=== PATIENT | female | born 1965 | race Caucasian/White ===

== ENCOUNTER 2018-06-16 10:27 | Emergency (ER) | payer OTHER ==
[2018-06-16 10:39] VITALS: RESP 18; TEMP 98.2
[2018-06-16] MEDS ORDERED: SODIUM CHLORIDE 0.9% 1,000 ML IV STA (10:55)
[2018-06-16] MEDS ORDERED: SODIUM CHLORIDE 0.9% 500 ML IV STA (10:55)
[2018-06-16 11:24] LABS: Appearance,Urine Clear (Clear); Bilirubin,Urine Negative (Negative); Blood,Urine Negative (Negative); Color,Urine Light Yellow; Glucose,Urine (UA) Negative (Negative); Ketones,Urine Negative (Negative); Leukocyte Esterase,Urine Negative (Negative); Nitrite,Urine Negative (Negative); Protein,Urine Negative (Negative); Specific Gravity,Urine 1.007 (1.001-1.035); Urobilinogen,Urine <2.0 mg/dL (<2.0)
--- NOTE | 2018-06-16 11:46 | ED ---
General Adult HPI - General Chief complaint: Abdominal Pain Stated complaint: Abd Pain Time Seen by Provider: 06/16/18 10:45 Source: patient, RN notes reviewed, old records reviewed Mode of arrival: ambulatory Limitations: no limitations - History of Present Illness Initial comments: This is a 53-year-old female to the ER for evaluation of abdominal pain. Patient's complaining of right upper quadrant abdominal pain. Patient has minor surgical history of OB surgery and hernia. She states this pain is been kind of intermittent for the last 3 days no significant modifying factors, not worse when she eats, she has been nauseous with no vomiting no diarrhea or abnormal bowel movements. She denies recent travel history or fevers. Patient' s pain was worse this morning when she woke up at this time it seemed to settle down a little bit. Patient does have positive OB history of 2 living vaginal deliveries. - Related Data Allergies Allergy/AdvReac Type Severity Reaction Status Date / Time No Known Allergies Allergy Verified 06/16/18 10:39 Review of Systems ROS Statement: Those systems with pertinent positive or pertinent negative responses have been documented in the HPI. ROS Other: All systems not noted in ROS Statement are negative. Past Medical History Past Medical History: Hyperlipidemia, Thyroid Disorder History of Any Multi-Drug Resistant Organisms: None Reported Past Surgical History: Tubal Ligation Additional Past Surgical History / Comment(s): umbilical hernia repair, lap for PCOS, right foot sx, myomyectomy Past Psychological History: No Psychological Hx Reported Smoking Status: Never smoker Past Alcohol Use History: Occasional Past Drug Use History: None Reported General Exam Limitations: no limitations General appearance: alert, in no apparent distress Head exam: Present: atraumatic, normocephalic, normal inspection Eye exam: Present: normal appearance, PERRL, EOMI. Absent: scleral icterus, conjunctival injection, periorbital swelling ENT exam: Present: normal exam, mucous membranes moist Neck exam: Present: normal inspection. Absent: tenderness, meningismus, lymphadenopathy Respiratory exam: Present: normal lung sounds bilaterally. Absent: respiratory distress, wheezes, rales, rhonchi, stridor Cardiovascular Exam: Present: regular rate, normal rhythm, normal heart sounds. Absent: systolic murmur, diastolic murmur, rubs, gallop, clicks GI/Abdominal exam: Present: soft, normal bowel sounds. Absent: distended, tenderness, guarding, rebound, rigid Extremities exam: Present: normal inspection, full ROM, normal capillary refill. Absent: tenderness, pedal edema, joint swelling, calf tenderness Back exam: Present: normal inspection Neurological exam: Present: alert, oriented X3, CN II-XII intact Psychiatric exam: Present: normal affect, normal mood Skin exam: Present: warm, dry, intact, normal color. Absent: rash Course Vital Signs 06/16/18 10:35 Temperature 98.2 F Pulse Rate 75 Respiratory 18 Rate Blood Pressure 143/98 O2 Sat by Pulse 99 Oximetry Medical Decision Making - Medical Decision Making 53 female the ER with upper quadrant pain right upper quadrant. No specific cause found on ultrasound, patient does have hepatic hemangioma, urged follow- up with family doctor monitor symptoms and findings. Patient can be discharged home - Lab Data Result diagrams: 06/16/18 11:35 06/16/18 11:35 Lab Results 06/16/18 06/16/18 06/16/18 Range/Units 11:20 11:35 11:35 WBC (3.8-10.6) k/uL RBC (3.80-5.40) m/uL Hgb (11.4-16.0) gm/dL Hct (34.0-46.0) % MCV (80.0-100.0) fL MCH (25.0-35.0) pg MCHC (31.0-37.0) g/dL RDW (11.5-15.5) % Plt Count (150-450) k/uL Neutrophils % % Lymphocytes % % Monocytes % % Eosinophils % % Basophils % % Neutrophils # (1.3-7.7) k/uL Lymphocytes # (1.0-4.8) k/uL Monocytes # (0-1.0) k/uL Eosinophils # (0-0.7) k/uL Basophils # (0-0.2) k/uL PT (9.0-12.0) sec INR (<1.2) APTT (22.0-30.0) sec Sodium 140 (137-145) mmol/L Potassium 4.3 (3.5-5.1) mmol/L Chloride 108 H (98-107) mmol/L Carbon Dioxide 26 (22-30) mmol/L Anion Gap 6 mmol/L BUN 16 (7-17) mg/dL Creatinine 0.70 (0.52-1.04) mg/dL Est GFR (CKD-EPI)AfAm >90 (>60 ml/min/1.73 sqM) Est GFR (CKD-EPI)NonAf >90 (>60 ml/min/1.73 sqM) Glucose 93 (74-99) mg/dL Calcium 9.6 (8.4-10.2) mg/dL Total Bilirubin 0.5 (0.2-1.3) mg/dL AST 24 (14-36) U/L ALT 31 (9-52) U/L Alkaline Phosphatase 110 (38-126) U/L Total Creatine Kinase 62 (30-135) U/L Total Protein 6.5 (6.3-8.2) g/dL Albumin 4.0 (3.5-5.0) g/dL Amylase 60 (30-110) U/L Lipase 64 (23-300) U/L Urine Color Light Yellow Urine Appearance Clear (Clear) Urine pH 7.0 (5.0-8.0) Ur Specific [place] 1.007 (1.001-1.035) Urine Protein Negative (Negative) Urine Glucose (UA) Negative (Negative) Urine Ketones Negative (Negative) Urine Blood Negative (Negative) Urine Nitrite Negative (Negative) Urine Bilirubin Negative (Negative) Urine Urobilinogen <2.0 (<2.0) mg/dL Ur Leukocyte Esterase Negative (Negative) 06/16/18 06/16/18 Range/Units 11:35 11:35 WBC 4.7 (3.8-10.6) k/uL RBC 5.17 (3.80-5.40) m/uL Hgb 14.9 (11.4-16.0) gm/dL Hct 44.1 (34.0-46.0) % MCV 85.4 (80.0-100.0) fL MCH 28.9 (25.0-35.0) pg MCHC 33.9 (31.0-37.0) g/dL RDW 13.5 (11.5-15.5) % Plt Count 160 (150-450) k/uL Neutrophils % 70 % Lymphocytes % 21 % Monocytes % 5 % Eosinophils % 1 % Basophils % 1 % Neutrophils # 3.3 (1.3-7.7) k/uL Lymphocytes # 1.0 (1.0-4.8) k/uL Monocytes # 0.3 (0-1.0) k/uL Eosinophils # 0.1 (0-0.7) k/uL Basophils # 0.0 (0-0.2) k/uL PT 9.8 (9.0-12.0) sec INR 1.0 (<1.2) APTT 23.9 (22.0-30.0) sec Sodium (137-145) mmol/L Potassium (3.5-5.1) mmol/L Chloride (98-107) mmol/L Carbon Dioxide (22-30) mmol/L Anion Gap mmol/L BUN (7-17) mg/dL Creatinine (0.52-1.04) mg/dL Est GFR (CKD-EPI)AfAm (>60 ml/min/1.73 sqM) Est GFR (CKD-EPI)NonAf (>60 ml/min/1.73 sqM) Glucose (74-99) mg/dL Calcium (8.4-10.2) mg/dL Total Bilirubin (0.2-1.3) mg/dL AST (14-36) U/L ALT (9-52) U/L Alkaline Phosphatase (38-126) U/L Total Creatine Kinase (30-135) U/L Total Protein (6.3-8.2) g/dL Albumin (3.5-5.0) g/dL Amylase (30-110) U/L Lipase (23-300) U/L Urine Color Urine Appearance (Clear) Urine pH (5.0-8.0) Ur Specific [place] (1.001-1.035) Urine Protein (Negative) Urine Glucose (UA) (Negative) Urine Ketones (Negative) Urine Blood (Negative) Urine Nitrite (Negative) Urine Bilirubin (Negative) Urine Urobilinogen (<2.0) mg/dL Ur Leukocyte Esterase (Negative) - Radiology Data Radiology results: report reviewed (Ultrasound right lower upper quadrant shows positive hepatic hemangioma, gallbladder clean of disease), image reviewed Disposition Clinical Impression: Abdominal pain, Hepatic hemangioma Disposition: HOME SELF-CARE Condition: Good Instructions: Abdominal Pain (ED) Is patient prescribed a controlled substance at d/c from ED?: No Referrals: Warner Taylor MD [Primary Care Provider] - 1-2 days
[2018-06-16 12:02] LABS: Basophils % (A) 1 %; Eosinophils # (A) 0.1 k/uL (0-0.7); Eosinophils % (A) 1 %; HCT 44.1 % (34.0-46.0); HGB 14.9 gm/dL (11.4-16.0); Lymphocytes % (A) 21 %; MCH 28.9 pg (25.0-35.0); MCHC 33.9 g/dL (31.0-37.0); MCV 85.4 fL (80.0-100.0); Mean Platelet Volume 7.6; Monocytes # (A) 0.3 k/uL (0-1.0); Monocytes % (A) 5 %; Neutrophils # (A) 3.3 k/uL (1.3-7.7); Neutrophils % (A) 70 %; Platelet Count 160 k/uL (150-450); RBC 5.17 m/uL (3.80-5.40); RDW 13.5 % (11.5-15.5); WBC 4.7 k/uL (3.8-10.6)
[2018-06-16 12:11] LABS: ALT 31 U/L (9-52); AST 24 U/L (14-36); Alkaline Phosphatase 110 U/L (38-126); Amylase 60 U/L (30-110); Anion Gap 6 mmol/L; Blood Urea Nitrogen 16 mg/dL (7-17); Calcium 9.6 mg/dL (8.4-10.2); Carbon Dioxide 26 mmol/L (22-30); Chloride 108 mmol/L (98-107); Glucose 93 mg/dL (74-99); Lipase 64 U/L (23-300); Potassium 4.3 mmol/L (3.5-5.1); Sodium 140 mmol/L (137-145); Total Bilirubin 0.5 mg/dL (0.2-1.3); Total Protein 6.5 g/dL (6.3-8.2)
[2018-06-16 12:14] LABS: Partial Thromboplastin Time 23.9 sec (22.0-30.0); Prothrombin Time 9.8 sec (9.0-12.0)
--- NOTE | 2018-06-16 12:15 | US ---
EXAMINATION TYPE: US gallbladder DATE OF EXAM: 06/16/2018 COMPARISON: NONE CLINICAL HISTORY: RUQ Pain. EXAM MEASUREMENTS: Liver Length: 14.2 cm Gallbladder Wall: 0.2 cm CBD: 0.5 cm Right Kidney: 10.9 x 4.5 x 4.8 cm Pancreas: Tail obscured by overlying bowel gas, visualized portions wnl Liver: Hyperechoic area visualized right lobe measuring 1.1 x 1.0 x0.9 cm, possible hemangioma Gallbladder: wnl Evidence for sonographic Sharp's sign: No CBD: wnl Right Kidney: No hydronephrosis or masses seen Pancreas is unremarkable. The liver is normal in size. There is a probable 1.1 cm hemangioma in the right lobe of the liver. Th ere is no biliary dilatation. The gallbladder is unremarkable. The gallbladder wall measures 2.2 mm. The distal common hepatic duct measures 5 mm. The right kidney is unremarkable. IMPRESSION: POSSIBLE SMALL HEMANGIOMA WITHIN THE RIGHT LOBE OF THE LIVER.
[2018-06-16 12:24] LABS: Creatine Kinase 62 U/L (30-135)
[2018-06-16 12:37] LABS: Creatine Kinase MB 0.6 ng/mL (0.0-2.4); Troponin I <0.012 ng/mL (0.000-0.034)
[2018-06-16 13:00] VITALS: BP 151/91; PULSE 73
== END 2018-06-16 13:00 | disposition home or self-care (01) ==
LOC: EC 10:27
DX: D18.03 Hemangioma of intra-abdominal structures (principal); Z98.51 Tubal ligation status; Z98.890 Other specified postprocedural states
CPT/HCPCS: 36415; 76705; 80053; 81003; 82150; 82550; 82553; 83690; 84484; 85025; 85610; 85730; 87086; 96360; 96361; 99284

== ENCOUNTER 2023-10-08 05:13 | Observation (INO) | payer OTHER ==
[2023-10-08] MEDS ORDERED: ASPIRIN 81 MG PO STA (05:50)
--- NOTE | 2023-10-08 05:56 | ED ---
Chest Pain HPI - General Chief Complaint: Chest Pain Stated Complaint: Chest pain Time Seen by Provider: 10/08/23 05:42 Source: patient Mode of arrival: ambulatory Limitations: no limitations - History of Present Illness Initial Comments: Patient is 58-year-old woman who states that left 4 AM she woke up and noticed that she had a tight feeling on the right side of her chest. She states that she has been under a lot of stress recently with building a home. Patient states that she did not notice worsening or relieving factors. When the pain did not go away she has been felt she should evaluate be evaluated and they drove here. The pain is little decreased but still there. She has not noted any accompanying symptoms. MD Complaint: chest pain -: hour(s) Onset: during rest Pain Location: right chest Pain Radiation: none Severity: moderate Quality: tightness Consistency: constant Improves With: nothing Worsens With: nothing Treatments Prior to Arrival: none - Related Data Allergies Allergy/AdvReac Type Severity Reaction Status Date / Time No Known Allergies Allergy Verified 06/16/18 10:39 Review of Systems ROS Statement: Those systems with pertinent positive or pertinent negative responses have been documented in the HPI. ROS Other: All systems not noted in ROS Statement are negative. Constitutional: Denies: fever, chills Respiratory: Denies: cough, dyspnea Cardiovascular: Reports: as per HPI, chest pain. Denies: palpitations, orthopnea, edema, syncope Gastrointestinal: Denies: abdominal pain, nausea, vomiting, diarrhea, constipation Genitourinary: Denies: dysuria, hematuria Musculoskeletal: Denies: back pain Skin: Denies: rash Neurological: Denies: headache, weakness, numbness EKG Findings - EKG Results: EKG: interpreted by ERMD, sinus rhythm (Rate 69 bpm), normal axis, normal ST/T - Blocks, Gilbert, Hypertrophy, ST Abn: QRS axis and voltage: low voltage (<0.5 MV total QRS and <1.0 MV in each precordial lead) Past Medical History Past Medical History: Hyperlipidemia, Thyroid Disorder History of Any Multi-Drug Resistant Organisms: None Reported Past Surgical History: Tubal Ligation Additional Past Surgical History / Comment(s): umbilical hernia repair, lap for PCOS, right foot sx, myomyectomy Past Psychological History: No Psychological Hx Reported Past Alcohol Use History: Occasional Past Drug Use History: None Reported General Exam Limitations: no limitations General appearance: alert, in no apparent distress Head exam: Present: atraumatic, normocephalic Eye exam: Present: normal appearance. Absent: scleral icterus, conjunctival injection ENT exam: Present: normal oropharynx Neck exam: Present: normal inspection Respiratory exam: Present: normal lung sounds bilaterally. Absent: respiratory distress, wheezes, rales, rhonchi, stridor Cardiovascular Exam: Present: regular rate, normal rhythm, normal heart sounds. Absent: systolic murmur, diastolic murmur, rubs, gallop GI/Abdominal exam: Present: soft. Absent: distended, tenderness, guarding, rebound, rigid, mass Extremities exam: Present: normal inspection, normal capillary refill. Absent: pedal edema, calf tenderness Back exam: Present: normal inspection. Absent: CVA tenderness (R), CVA tenderness (L) Neurological exam: Present: alert Skin exam: Present: warm, dry, intact, normal color. Absent: rash Course Vital Signs 10/08/23 10/08/23 05:16 06:11 Temperature 97.8 F Pulse Rate 79 68 Respiratory 18 18 Rate Blood Pressure 158/99 122/84 O2 Sat by Pulse 97 97 Oximetry Disposition Clinical Impression: Chest pain Disposition: ADMITTED IP TO THIS HOSP Condition: Fair Instructions (If sedation given, give patient instructions): Chest Pain (ED) Is patient prescribed a controlled substance at d/c from ED?: No Referrals: Nonstaff,Physician [Primary Care Provider] - 1-2 days
--- NOTE | 2023-10-08 06:48 | XR ---
EXAMINATION TYPE: XR chest 2V DATE OF EXAM: 10/08/2023 6:02 AM COMPARISON: None TECHNIQUE: XR chest 2V Frontal and lateral views of the chest. CLINICAL INDICATION:Female, 58 years old with history of Chest Pain; FINDINGS: Lungs/Pleura: There is no evidence of pleural effusion, focal consolidation, or pneumothorax. Pulmonary vascularity: Unremarkable. Heart/mediastinum: Cardiomediastinal silhouette is unremarkable. Musculoskeletal: No acute osseous pathology. IMPRESSION: No acute cardiopulmonary disease/process.
[2023-10-08 07:35] LABS: Basophils # (A) 0.1 k/uL (0-0.2); Basophils % (A) 1 %; Eosinophils # (A) 0.1 k/uL (0-0.7); Eosinophils % (A) 2 %; HCT 49.2 % (34.0-46.0); HGB 16.8 gm/dL (11.4-16.0); Lymphocytes # (A) 0.9 k/uL (1.0-4.8); Lymphocytes % (A) 20 %; MCH 30.1 pg (25.0-35.0); MCHC 34.1 g/dL (31.0-37.0); MCV 88.3 fL (80.0-100.0); Mean Platelet Volume 8.5; Monocytes # (A) 0.2 k/uL (0-1.0); Monocytes % (A) 5 %; Neutrophils # (A) 3.3 k/uL (1.3-7.7); Neutrophils % (A) 71 %; Platelet Count 187 k/uL (150-450); RBC 5.58 m/uL (3.80-5.40); RDW 13.1 % (11.5-15.5); WBC 4.6 k/uL (3.8-10.6)
[2023-10-08 07:53] LABS: ALT 22 U/L (4-34); AST 25 U/L (14-36); African American GFR (CKD) >90 (>60 ml/min/1.73 sqM); Albumin 4.4 g/dL (3.5-5.0); Alkaline Phosphatase 132 U/L (38-126); Amylase 67 U/L (30-110); Anion Gap 9 mmol/L; Blood Urea Nitrogen 21 mg/dL (7-17); Calcium 10.2 mg/dL (8.4-10.2); Carbon Dioxide 27 mmol/L (22-30); Chloride 105 mmol/L (98-107); Glucose 92 mg/dL (74-99); Lipase 96 U/L (23-300); Magnesium 2.1 mg/dL (1.6-2.3); Non-African American GFR(CKD) >90 (>60 ml/min/1.73 sqM); Potassium 4.4 mmol/L (3.5-5.1); Sodium 141 mmol/L (137-145); Total Bilirubin 0.5 mg/dL (0.2-1.3); Total Protein 7.3 g/dL (6.3-8.2)
[2023-10-08] MEDS ORDERED: NITROGLYCERIN SL TABS 0.4 MG TAB SUBLINGUAL PRN (07:55)
[2023-10-08 07:56] LABS: INR 0.8 (<1.2); Partial Thromboplastin Time 22.2 sec (22.0-30.0); Prothrombin Time 9.5 sec (10.0-12.5)
[2023-10-08] MEDS ORDERED: HYDROcodone/APAP 5-325MG 1 EACH TAB PO PRN (08:32)
[2023-10-08] MEDS ORDERED: MELATONIN 3 MG TABLET PO PRN (08:32)
[2023-10-08] MEDS ORDERED: ACETAMINOPHEN TAB 325 MG TAB PO PRN (08:32)
[2023-10-08] MEDS ORDERED: NALOXONE 0.4 MG/ML 1 ML VIAL IVP PRN (08:32)
[2023-10-08] MEDS: ASPIRIN 81 MG PO SCH (09:15)
[2023-10-08] MEDS: ATORVASTATIN 80 MG TAB PO SCH (09:16)
[2023-10-08] MEDS: METOPROLOL TARTRATE 12.5 MG TAB PO SCH ×2 (09:16→20:30)
--- NOTE | 2023-10-08 10:58 | P.CRDCN ---
History of Present Illness Consult date: 10/08/23 History of present illness: This pleasant 58-year-old female is examined in the ER waiting for a bed on the sixth for. Patient came in today with complaints of chest tightness on the right side. Patient has a known history of hyperlipidemia and thyroid disorder. Patient has been seen by cardiology at [facility]. Patient was woken up this morning at 4 AM with chest pain. She reports the pain has improved but is still slightly there and not completely resolved. Denies any worsening or relieving factors. She denies shortness of breath, dizziness, syncope, or edema. States she has been under a lot of stress, they have recently moved to the area and are building a home in [place]. 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 She recently underwent a stress test in June at [facility] which was normal. EKG showed sinus rhythm. Troponins negative 2. D-dimer negative. Patient is on Lopressor, will continue. Vital signs remained stable, blood pressure slightly elevated at 149/96 heart rate controlled at 72, 100% on room air. Patient's symptoms are atypical, will repeat stress echo tomorrow to rule out ischemic changes. Review of Systems REVIEW OF SYSTEMS At the time of my exam: CONSTITUTIONAL: Denies fever or chills. EYES: Negative for vision changes ENT: Negative for hearing loss CARDIOVASCULAR: Reports chest pain Denies shortness of breath, diaphoresis, orthopnea, PND or palpitations. VASCULAR: Denies edema RESPIRATORY: Denies cough. GASTROINTESTINAL: Denies abdominal pain, diarrhea, constipation, nausea or vomiting. MUSCULOSKELETAL: Denies myalgias. NEUROLOGIC: Denies numbness, tingling, headache or weakness. ENDOCRINE: Denies fatigue, weight change, polydipsia or polyurina. GENITOURINARY: Denies burning, hematuria or urgency with micturation. HEMATOLOGIC: Denies history of anemia or bleeding. DERMATOLOGY: Denies rash or skin sores PSYCH: Negative for depression or hallucinations. Past Medical History Past Medical History: Hyperlipidemia, Thyroid Disorder History of Any Multi-Drug Resistant Organisms: None Reported Past Surgical History: Tubal Ligation Additional Past Surgical History / Comment(s): umbilical hernia repair, lap for PCOS, right foot sx, myomyectomy Past Psychological History: No Psychological Hx Reported Past Alcohol Use History: Occasional Past Drug Use History: None Reported Medications and Allergies Allergies Allergy/AdvReac Type Severity Reaction Status Date / Time No Known Allergies Allergy Verified 06/16/18 10:39 Physical Exam Vitals: Vital Signs Temp Pulse Pulse Resp BP BP Pulse Ox 10/08/23 09:45 97.3 F L 72 16 149/96 100 10/08/23 09:02 68 18 136/84 98 10/08/23 06:11 68 18 122/84 97 10/08/23 05:16 97.8 F 79 18 158/99 97 Intake and Output 10/07/23 10/08/23 10/08/23 22:59 06:59 14:59 Other: Voiding Method Toilet Weight 72.575 kg General: The patient is awake and alert, in no distress, and does not appear acutely ill. Skin: Skin is warm and dry and no rashes or lesions are noted. Eye: Pupils are equal, round and reactive to light, extra-ocular movements are intact; there is normal conjunctiva bilaterally. Ears, nose, mouth and throat: There are moist mucous membranes and no oral lesions. Neck: The neck is supple, there is no tenderness or JVD. Cardiovascular: There is irregular regular rate and rhythm. No murmur, rub or gallop is appreciated. Respiratory: Lungs are clear to auscultation, respirations are non-labored, breath sounds are equal. Gastrointestinal: Soft, non-distended, non-tender abdomen without masses or organomegaly noted. There is no rebound or guarding present. Bowel sounds are u nremarkable. Back: There is no tenderness to palpation in the midline. There is no obvious deformity. Musculoskeletal: Normal ROM, no tenderness, There is no pedal edema. There is no calf tenderness or swelling. Extremities: Mild bilateral pitting edema Vascular: Femoral pulse is normal. Posterior tibial pulses are normal .Dorsalis pedis is palpable. Neurological: CN II-XII intact. There are no obvious motor or sensory deficits. Speech is normal. Psychiatric: Cooperative, appropriate mood & affect, normal judgment Results 10/08/23 05:47 10/08/23 05:47 Cardiac Enzymes 10/08/23 10/08/23 10/08/23 Range/Units 05:47 05:47 09:00 AST 25 (14-36) U/L Troponin I <0.012 <0.012 (0.000-0.034) ng/mL Coagulation 10/08/23 Range/Units 05:47 PT 9.5 L (10.0-12.5) sec APTT 22.2 (22.0-30.0) sec CBC 10/08/23 Range/Units 05:47 WBC 4.6 (3.8-10.6) k/uL RBC 5.58 H (3.80-5.40) m/uL Hgb 16.8 H (11.4-16.0) gm/dL Hct 49.2 H (34.0-46.0) % Plt Count 187 (150-450) k/uL Comprehensive Metabolic Panel 10/08/23 Range/Units 05:47 Sodium 141 (137-145) mmol/L Potassium 4.4 (3.5-5.1) mmol/L Chloride 105 (98-107) mmol/L Carbon Dioxide 27 (22-30) mmol/L BUN 21 H (7-17) mg/dL Creatinine 0.69 (0.52-1.04) mg/dL Glucose 92 (74-99) mg/dL Calcium 10.2 (8.4-10.2) mg/dL AST 25 (14-36) U/L ALT 22 (4-34) U/L Alkaline Phosphatase 132 H (38-126) U/L Total Protein 7.3 (6.3-8.2) g/dL Albumin 4.4 (3.5-5.0) g/dL Current Medications Generic Name Dose Route Start Last Admin Trade Name Freq PRN Reason Stop Dose Admin Acetaminophen 650 mg 10/08/23 08:32 Acetaminophen Tab 325 Mg Tab PO Q6HR PRN Mild Pain or Fever > 100.5 Hydrocodone Bitart/Acetaminophen 1 each 10/08/23 08:32 Hydrocodone/Apap 5-325mg 1 Each Tab PO Q4HR PRN Moderate Pain (Scale 4 to 6) Aspirin 81 mg 10/08/23 09:00 10/08/23 09:15 Aspirin 81 Mg PO Not Given DAILY THAIS Atorvastatin Calcium 80 mg 10/08/23 09:00 10/08/23 09:16 Atorvastatin 80 Mg Tab PO 80 mg DAILY THAIS Administration Melatonin 3 mg 10/08/23 08:32 Melatonin 3 Mg Tablet PO HS PRN Insomnia Metoprolol Tartrate 12.5 mg 10/08/23 09:00 10/08/23 09:16 Metoprolol Tartrate 12.5 Mg Tab PO 12.5 mg BID THAIS Administration Naloxone HCl 0.2 mg 10/08/23 08:32 Naloxone 0.4 Mg/Ml 1 Ml Vial IVP Q2M PRN Opioid Reversal Nitroglycerin 0.4 mg 10/08/23 07:55 Nitroglycerin Sl Tabs 0.4 Mg Tab SUBLINGUAL Q5M PRN Chest Pain Intake and Output 10/07/23 10/08/23 10/08/23 22:59 06:59 14:59 Other: Voiding Method Toilet Weight 72.575 kg 10/08/23 05:47 10/08/23 05:47 Assessment and Plan Assessment: Atypical chest pain Hyperlipidemia Thyroid disease Plan: Patient will undergo a stress echo tomorrow Continue with all current cardiac meds The above impression and plan of care have been discussed and directed by the signing physician. Pascale Granado, nurse practitioner, acting as scribe for signing physician.
--- NOTE | 2023-10-08 16:03 | P.HPIM ---
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 She presented to the emergency department this morning with complaints of chest pain/tightness. Patient reports awakening at 4 AM with tightness to midsternal chest radiating throughout the right side of her chest. Patient reports pain was significant awakening her from sleep and her was concerned so he brought her to the hospital. Patient denies having any associated symptoms including headache, lightheadedness, dizziness, diaphoresis, palpitations, shortness of breath, cough or congestion, nausea, vomiting, or experiencing any numbness/tingling/weakness/swelling in extremities. Upon arrival to our emergency department. Patient underwent full evaluation. Vital signs as follows blood pressure 158/99, heart rate 79, respiratory rate 18, temperature 97.8F, and SpO2 of 97% on room air. EKG completed showing normal sinus rhythm at 69 bpm with no noted T wave or ST abnormality showing no signs of acute ischemia upon personal review and interpretation. Chest x-ray compl eted lungs appear clear showing no signs of acute cardiopulmonary process. Labs completed and reviewed. CBC showing elevated hemoglobin of 16.8. Coagulation profile normal findings with normal d-dimer of 0.32. BMP was unremarkable with the exception of slightly elevated BUN at 21 otherwise no abnormalities. Liver profile showing slightly elevated alkaline phosphatase of 132. Amylase and lipa se within normal limits. Troponin was negative at less than 0.012. Patient was admitted under our services to cardiac observation unit with consultation to cardiology. Review of systems: Pertinent positives and negatives as discussed in HPI, a complete review of systems was performed and all other systems are negative. Physical exam: Vital signs reviewed and stable. General: Nontoxic, no distress and appears stated age. Derm: Skin warm and dry, normal coloration for ethnicity. Head: Atraumatic, normocephalic and symmetric. Eyes: EOMs intact, no lid lag, and anicteric sclera Mouth: no lip lesions, mucus membranes moist Cardiovascular: regular rate and rhythm with normal S1S2, no murmur, positive posterior tibial pulses bilaterally, and cap refill < 2 seconds. Lungs: Respirations even, regular, and unlabored on room air. Lungs CTA bilaterally, no rhonchi, no rales, no wheezing, and no accessory muscle usage. Abdominal: soft, nontender to palpation, no guarding, no appreciable organomegaly Ext: ROM intact. No gross muscle atrophy, no edema, no contractures Neuro: Speech clear, face symmetrical and CN II-XII grossly intact with no noted focal neuro deficits Psych: Alert and oriented to person, place, time, and situation. Appropriate and pleasant affect. Assessment and Plan of Care: Chest pain, rule out acute coronary event Hyperlipidemia Hypothyroidism -Cardiology consult, appreciate further recommendations. Discussed case with cardiac SECY stating they're taking patient for a cardiac stress test tomorrow morning. -Patient remained in continuous Telemetry monitoring -Trend troponins -Cardiac diet, NPO at midnight -Aspirin, atorvastatin, and metoprolol -Lipid profile with a.m. labs. -Echocardiogram to be completed Data and imaging reviewed: -Vital signs as follows blood pressure 158/99, heart rate 79, respiratory rate 18, temperature 97.8F, and SpO2 of 97% on room air. -EKG completed showing normal sinus rhythm at 69 bpm with no noted T wave or ST abnormality showing no signs of acute ischemia upon personal review and interpretation. -Chest x-ray completed lungs appear clear showing no signs of acute cardiopulmonary process. -Labs completed and reviewed. CBC showing elevated hemoglobin of 16.8. Coagulation profile normal findings with normal d-dimer of 0.32. BMP was unremarkable with the exception of slightly elevated BUN at 21 otherwise no abnormalities. Liver profile showing slightly elevated alkaline phosphatase of 132. Amylase and lipase within normal limits. Troponin was negative at less than 0.012. Patient was admitted under our services to cardiac observation unit with con sultation to cardiology with an expected less than 2 midnight stay for evaluation of her chest pain. CODE STATUS: Full code DVT prophylaxis: Heparin Discussed with: Patient, patient's at bedside, RN, and cardiac SECY Anticipated discharge date: 24-[address]: Patient was seen independently by Nurse Practitioner. This document was prepared using [employer] dictation software. Please allow for errors in financial aid counselor while rare they do occur. James Willard SECY rendered care for this patient independently, reviewed the findings and plan as documented in the note above. I did not physically speak with or examine the patient on this date. Past Medical History Past Medical History: Hyperlipidemia, Thyroid Disorder History of Any Multi-Drug Resistant Organisms: None Reported Past Surgical History: Tubal Ligation Additional Past Surgical History / Comment(s): umbilical hernia repair, lap for PCOS, right foot sx, myomyectomy Past Psychological History: No Psychological Hx Reported Past Alcohol Use History: Occasional Past Drug Use History: None Reported Medications and Allergies Home Medications Medication Instructions Recorded Confirmed Type Calcium Citrate/Vitamin D3 1 tab PO DAILY 10/08/23 10/08/23 History [Calcium Cit-Vit D3 500 mg Chew] Cholecalciferol [Vitamin D3 (25 75 mcg PO DAILY 10/08/23 10/08/23 History Mcg = 1000 Iu)] Losartan [Cozaar] 50 mg PO DAILY 30 Days #30 tab 10/09/23 Rx Metoprolol Succinate (ER) [Toprol 12.5 mg PO 1200 30 Days #15 tab 10/09/23 Rx XL] Allergies Allergy/AdvReac Type Severity Reaction Status Date / Time No Known Allergies Allergy Verified 10/08/23 13:28 Physical Exam Vitals: Vital Signs Temp Pulse Resp BP Pulse Ox 10/08/23 06:11 68 18 122/84 97 10/08/23 05:16 97.8 F 79 18 158/99 97 Intake and Output 10/07/23 10/08/23 10/08/23 22:59 06:59 14:59 Other: Weight 72.575 kg Results CBC & Chem 7: 10/09/23 05:52 10/09/23 05:52 Labs: Abnormal Lab Results - Last 24 Hours (Table) 10/08/23 10/08/23 10/08/23 Range/Units 05:47 05:47 05:47 RBC 5.58 H (3.80-5.40) m/uL Hgb 16.8 H (11.4-16.0) gm/dL Hct 49.2 H (34.0-46.0) % Lymphocytes # 0.9 L (1.0-4.8) k/uL PT 9.5 L (10.0-12.5) sec BUN 21 H (7-17) mg/dL Alkaline Phosphatase 132 H (38-126) U/L
[2023-10-08] MEDS: HEPARIN SODIUM,PORCINE 5,000 UNIT/ML 1 ML VIAL SQ SCH (20:43)
[2023-10-09 07:46] VITALS: BP 142/94; PULSE 91; RESP 14; TEMP 98
[2023-10-09] MEDS: ASPIRIN 81 MG PO SCH (08:36)
[2023-10-09] MEDS: ATORVASTATIN 80 MG TAB PO SCH (08:39)
[2023-10-09] MEDS: HEPARIN SODIUM,PORCINE 5,000 UNIT/ML 1 ML VIAL SQ SCH (08:42)
[2023-10-09] MEDS ORDERED: ASPIRIN 325 MG TAB PO SCH (09:00)
[2023-10-09] MEDS ORDERED: LOSARTAN 25 MG TAB PO SCH (09:00)
[2023-10-09] MEDS ORDERED: LOSARTAN 50 MG TAB PO SCH (09:00)
[2023-10-09 09:19] LABS: ALT 19 U/L (8-44); AST 14 U/L (13-35); Albumin 4.2 g/dL (3.8-4.9); Albumin/Globulin Ratio 1.91 Ratio (1.60-3.17); Alkaline Phosphatase 125 U/L (41-126); BUN/Creat Ratio 21.71 Ratio (12.00-20.00); Blood Urea Nitrogen 15.2 mg/dL (9.0-27.0); Calcium 10.3 mg/dL (8.7-10.3); Carbon Dioxide 27.6 mmol/L (21.6-31.8); Chloride 106 mmol/L (96-109); Chol/HDL Ratio 2.55 Ratio; Globulin 2.2 g/dL (1.6-3.3); Glucose 93 mg/dL (70-110); Magnesium 2.2 mg/dL (1.5-2.4); Potassium 4.9 mmol/L (3.5-5.5); Sodium 141 mmol/L (135-145); Total Bilirubin 0.4 mg/dL (0.3-1.2); Total Protein 6.4 g/dL (6.2-8.2); VLDL Calculation 13.16 mg/dL (5.00-40.00)
[2023-10-09 09:20] LABS: HGB 15.8 g/dL (12.0-15.0); MCH 28.6 pg (27.0-32.0); MCHC 32.9 g/dL (32.0-37.0); Mean Platelet Volume 11.1 FL (9.5-12.2); NRBC Per 100 WBC 0 X 10*3/uL (0.00-0.01); Platelet Count 192 X 10*3/uL (140-440); RBC 5.52 X 10*6/uL (4.10-5.20); WBC 4.72 X 10*3/uL (4.50-10.00)
--- NOTE | 2023-10-09 11:16 | P.PN ---
Subjective Progress Note Date: 10/09/23 History of present illness: This pleasant 58-year-old female is examined in the ER waiting for a bed on the sixth for. Patient came in today with complaints of chest tightness on the right side. Patient has a known history of hyperlipidemia and thyroid disorder. Patient has been seen by cardiology at [facility]. Patient was woken up this morning at 4 AM with chest pain. She reports the pain has improved but is still slightly there and not completely resolved. Denies any worsening or relieving factors. She denies shortness of breath, dizziness, syncope, or edema. States she has been under a lot of stress, they have recently moved to the area and are building a home in [place]. 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 She recently underwent a stress test in June at [facility] which was normal. EKG showed sinus rhythm. Troponins negative 2. D-dimer negative. Patient is on Lopressor, will continue. Vital signs remained stable, blood pressure slightly elevated at 149/96 heart rate controlled at 72, 100% on room air. Patient's symptoms are atypical, will repeat stress echo tomorrow to rule out ischemic changes. 10/09 Patient is seen today in follow-up. She underwent a stress test done at [facility] on August 04 which was reviewed. This showed a 9 minute walking and achieved 164 heart rate. Stress test was negative. She states she is recently moved to the area and does not have a primary care physician. She states she does not follow and has not seen a rug cutter helper in the past. She was scheduled for stress echocardiogram today which we'll cancel. Blood pressure 142/94, heart rate in the 80s and 90s. Patient was started on a beta mikey yesterday. Physical examination: Gen: This is a 58-year-old female ambulating the hallway in no acute distress. VS: reviewed HEENT: Head is atraumatic, normocephalic. Pupils equal, round. Sclerae is anicteric. LUNGS: Clear to auscultation. No wheezes or rhonchi. No intercostal retr actions. HEART: Regular rate and rhythm. No murmur. EXTREMITIES: No pedal edema. No calf tenderness. NEUROLOGICAL: Patient is awake, alert and oriented x3. Assessment: Atypical chest pain Hyperlipidemia Thyroid disease Plan: Continue losartan and increase to 50 mg daily. Patient will be monitoring her blood pressure more consistently at home and if blood pressure readings are improved, patient may decrease to 25 mg daily Transition Lopressor to Toprol-XL 12.5 mg daily Outpatient echocardiogram to be done in the next 1-2 weeks. Follow-up with Dr. Mikayla Alvarez in the office in 3 weeks. Nurse practitioner note has been reviewed, I agree with documented findings and plan of care. Patient was seen and examined. Objective - Vital Signs Vital signs: Vital Signs Temp 98.0 F 10/09/23 07:00 Pulse 91 10/09/23 07:00 Resp 14 10/09/23 07:00 BP 142/94 10/09/23 07:00 Pulse Ox 95 10/09/23 07:00 FiO2 Intake & Output 10/08/23 10/09/23 10/09/23 18:59 06:59 18:59 Intake Total 240 Balance 240 Weight 72.575 kg Intake: Oral 240 Other: Voiding Method Toilet Toilet # Voids 1 2 - Labs CBC & Chem 7: 10/09/23 05:52 10/09/23 05:52 Labs: Abnormal Lab Results - Last 24 Hours (Table) 10/08/23 Range/Units 05:47 PT 9.5 L (10.0-12.5) sec
--- NOTE | 2023-10-09 11:17 | P.DS ---
Providers Date of admission: 10/08/23 07:55 Expected date of discharge: 10/09/23 Attending physician: Rose Amos DO Consults: 10/08/23 07:55 Consult Physician Routine Consulting Provider: Enrico Prescott Consult Reason/Comments: chest pain Do you want consulting provider notified?: Yes Primary care physician: Physician Nonstaff Hospital Course: Discharge Diagnosis: Chest pain, acute coronary event ruled out. Patient cleared from cardiac perspective recommending outpatient follow-up in their office for repeat echocardiogram in 3 weeks. Hypertension. Patient was started on metoprolol succinate 12.5 mg daily and losartan was increased from 25 mg daily to 50 mg daily. Hyperlipidemia, recommended heart healthy and carb consistent diet to further improve cholesterol levels. Patient reports that she is to levels through exercise and diet and will continue exercise and diet and declined being started on low-dose atorvastatin at this time. Hypothyroidism, secondary to hypervascular nodules status post radioactive iodine resulting in normal functioning thyroid and no further need for medication. 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 She presented to the emergency department this morning with complaints of chest pain/tightness. Patient reports awakening at 4 AM with tightness to midsternal chest radiating throughout the right side of her chest. Patient reports pain was significant awakening her from sleep and her was concerned so he brought her to the hospital. Patient denies having any associated symptoms including headache, lightheadedness, dizziness, diaphoresis, palpitations, shortness of breath, cough or congestion, nausea, vomiting, or experiencing any numbness/tingling/weakness/swelling in extremities. Upon arrival to our emergency department. Patient underwent full evaluation. Vital signs as follows blood pressure 158/99, heart rate 79, respiratory rate 18, temperature 97.8F, and SpO2 of 97% on room air. EKG completed showing normal sinus rhythm at 69 bpm with no noted T wave or ST abnormality showing no signs of acute ischemia upon personal review and interpretation. Chest x-ray completed lungs appear clear showing no signs of acute cardiopulmonary process. Labs completed and reviewed. CBC showing elevated hemoglobin of 16.8. Coagulation profile normal findings with normal d-dimer of 0.32. BMP was unremarkable with the exception of slightly elevated BUN at 21 otherwise no abnormalities. Liver profile showing slightly elevated alkaline phosphatase of 132. Amylase and lipase within normal limits. Troponin was negative at less than 0.012. Patient was admitted under our services to cardiac observation unit with consultation to cardiology. She was started on metoprolol and her losartan was increased. Patient had resolution of chest pain/discomfort. She was monitored overnight and condition remained stable. Cardiology clearing patient from cardiac perspective recommending outpatient follow-up in our office in 3 weeks for repeat echocardiogram. Medically, patient is stable at this time and stable for discharge home. Patient given information for recommended PCP in this area (as she recently moved to this area) and she is encouraged to follow- up not only with a primary care doctor about with lieutenant fire fighter in 3 weeks as discussed. Physical exam: Vital signs reviewed and stable. General: Nontoxic, no distress and appears stated age. Derm: Skin warm and dry, normal coloration for ethnicity. Head: Atraumatic, normocephalic and symmetric. Eyes: EOMs intact, no lid lag, and anicteric sclera Mouth: no lip lesions, mucus membranes moist Cardiovascular: regular rate and rhythm with normal S1S2, no murmur, positive posterior tibial pulses bilaterally, and cap refill < 2 seconds. Lungs: Respirations even, regular, and unlabored on room air. Lungs CTA bilaterally, no rhonchi, no rales, no wheezing, and no accessory muscle usage. Abdominal: soft, nontender to palpation, no guarding, no appreciable organomegaly Ext: ROM intact. No gross muscle atrophy, no edema, no contractures Neuro: Speech clear, face symmetrical and CN II-XII grossly intact with no noted focal neuro deficits Psych: Alert and oriented to person, place, time, and situation. Appropriate and pleasant affect. A total of 34 minutes of time were spent preparing this complex discharge summary. Pt was discharged on 10/09/23 at 11:42 AM. Patient was seen independently by Nurse Practitioner. This document was prepared using [employer] dictation software. Please allow for errors in top steep tender while rare they do occur. James Willard NP rendered care for this patient independently, reviewed the findings and plan as documented in the note above. I did not physically speak with or examine the patient on this date. Patient Condition at Discharge: Stable Plan - Discharge Summary Discharge Rx Participant: No New Discharge Prescriptions: New Losartan [Cozaar] 50 mg PO DAILY 30 Days #30 tab Metoprolol Succinate (ER) [Toprol XL] 12.5 mg PO 1200 30 Days #15 tab Continue Cholecalciferol [Vitamin D3 (25 Mcg = 1000 Iu)] 75 mcg PO DAILY Calcium Citrate/Vitamin D3 [Calcium Cit-Vit D3 500 mg Chew] 1 tab PO DAILY Discontinued Losartan [Cozaar] 25 mg PO DAILY Discharge Medication List Calcium Citrate/Vitamin D3 [Calcium Cit-Vit D3 500 mg Chew] 1 tab PO DAILY 10/08/23 [History] Cholecalciferol [Vitamin D3 (25 Mcg = 1000 Iu)] 75 mcg PO DAILY 10/08/23 [History] Losartan [Cozaar] 50 mg PO DAILY 30 Days #30 tab 10/09/23 [Rx] Metoprolol Succinate (ER) [Toprol XL] 12.5 mg PO 1200 30 Days #15 tab 10/09/23 [Rx] Follow up Appointment(s)/Referral(s): Unruly Reilly MD [STAFF PHYSICIAN] - 3 Weeks Kun Yadav MD [REFERRING] - 1 Week (Highly recommend establishing primary care with!!) Patient Instructions/Handouts: Chest Pain (ED) Activity/Diet/Wound Care/Special Instructions: Activity: As tolerated. Take breaks as needed. Diet: Heart healthy and carb consistent diet. Avoid salts, or foods with hidden salts such as canned or boxed foods and frozen dinners. Extra salt makes your heart wo rk harder and traps the fluid in your body for longer. Special Instructions: Take all of your medications as directed and remember to keep all of your doc tor's appointments and follow-up as needed. Monitor blood pressures closely as you have been started on a new medication called Metroprolol and your losartan was increased. You will need to follow-up outpatient in cardiology office as discussed in 3 weeks for a repeat echocardiogram. Thank you for allowing us to participate in your care, it was truly a pleasure having you for our patient!!! Discharge Disposition: HOME SELF-CARE
[2023-10-09] MEDS ORDERED: METOPROLOL SUCCINATE (ER) 25 MG TAB.ER.24H PO SCH (12:00)
== END 2023-10-09 13:35 | disposition home or self-care (01) ==
LOC: EC 05:13 → 6NMEDSUR 07:55
PROVIDERS: ADMIT Internal Medicine; ATTEND Internal Medicine
DX: R07.9 Chest pain, unspecified (principal); I10 Essential (primary) hypertension; E78.5 Hyperlipidemia, unspecified; E03.9 Hypothyroidism, unspecified; Z79.82 Long term (current) use of aspirin; Z79.899 Other long term (current) drug therapy
CPT/HCPCS: 99285; 36415; 93005; 85379; 80061; 80053 ×2; 82150; 83690; 83735 ×2; 84484; 85025; 85027; 85610; 85730; 71046; G0378 ×2

== ENCOUNTER → 2023-11-06 | Outpatient (CLI) | payer OTHER ==
--- NOTE | 2023-11-06 10:26 | CA ---
Transthoracic Echo Report Name: Marilin Souza Age: 58 Gender: F : 1965 Exam Date: 11/06/2023 08:40 Exam Location: [facility] Ht (in): 65 Wt (lb): 160 Ordering Physician: Rose Amos DO Attending/Referring Phys: James Willard [facility] Engine Repairer Simran Ritter RDCS Procedure CPT: Indications: R01.1 Murmur Cardiac Hx: Technical Quality: Fair Contrast 1: Total Dose (mL): Contrast 2: Total Dose (mL): MEASUREMENTS (Male / Female) Normal Values 2D ECHO LV Diastolic Diameter PLAX 4.0 cm 4.2 - 5.9 / 3.9 - 5.3 cm LV Systolic Diameter PLAX 2.3 cm IVS Diastolic Thickness 1.1 cm 0.6 - 1.0 / 0.6 - 0.9 cm LVPW Diastolic Thickness 1.0 cm 0.6 - 1.0 / 0.6 - 0.9 cm LV Relative Wall Thickness 0.5 RV Internal Dim ED PLAX 3.4 cm LA Volume 32.2 cm??? 18 - 58 / 22 - 52 cm??? LA Volume Index 17.5 cm???/m??? 16 - 28 cm???/m??? M-MODE Aortic Root Diameter MM 2.6 cm LA Systolic Diameter MM 3.6 cm LA Ao Ratio MM 1.4 AV Cusp Separation MM 1.7 cm DOPPLER AV Peak Velocity 123.1 cm/s AV Peak Gradient 6.1 mmHg AV Mean Velocity 89.7 cm/s AV Mean Gradient 3.4 mmHg AV Velocity Time Integral 26.6 cm LVOT Peak Velocity 100.8 cm/s LVOT Peak Gradient 4.1 mmHg LVOT Velocity Time Integral 19.3 cm MV Area PHT 3.8 cm??? Mitral E Point Velocity 72.0 cm/s Mitral A Point Velocity 49.2 cm/s Mitral E to A Ratio 1.5 MV Deceleration Time 197.6 ms MV E' Velocity 6.7 cm/s Mitral E to MV E' Ratio 10.8 TR Peak Velocity 220.6 cm/s TR Peak Gradient 19.5 mmHg Right Ventricular Systolic Press 23.9 mmHg FINDINGS Left Ventricle Normal Left ventricular size, wall thickness, systolic function with no obvious regional wall motion abnormalities. Normal Left ventricular diastolic filling pattern. Left ventricular ejection fraction is estimated at 55-60 %. Right Ventricle Normal right ventricular size and function. Right ventricular systolic pressure within normal limits. Right Atrium Normal right atrial size. Left Atrium Normal left atrial size. Mitral Valve Structurally normal mitral valve. Mild mitral regurgitation. Aortic Valve Trileaflet aortic valve. No aortic valve stenosis or regurgitation. Tricuspid Valve Structurally normal tricuspid valve. Mild tricuspid regurgitation. Pulmonic Valve Structurally normal pulmonic valve. Pericardium No pericardial effusion. Aorta Normal size aortic root and proximal ascending aorta. CONCLUSIONS Left ventricular ejection fraction is estimated at 55-60 %. Normal Left ventricular diastolic filling pattern. No obvious regional wall motion abnormalities. No significant valvular dysfunction No pericardial effusion RVSP less than 25 mmHg Previewed by: Dr Rashi Hernandez (Electronically Signed) Final Date: 06 November 2023 10:25
== END | disposition home or self-care (01) ==
LOC: RADECHMAIN 08:23
PROVIDERS: ATTEND Internal Medicine
DX: R01.1 Cardiac murmur, unspecified (principal)
CPT/HCPCS: 93306

== ENCOUNTER → 2023-12-25 | Outpatient (CLI) | payer OTHER ==
[2023-12-25 16:58] LABS: NT-Pro-B-Type Natriuretic Pept 48 pg/mL
[2023-12-26 02:30] LABS: ALT 26 U/L (8-44); AST 17 U/L (13-35); Albumin 4.7 g/dL (3.8-4.9); Albumin/Globulin Ratio 1.88 Ratio (1.60-3.17); Alkaline Phosphatase 148 U/L (41-126); Blood Urea Nitrogen 22.4 mg/dL (9.0-27.0); Calcium 10.6 mg/dL (8.7-10.3); Chloride 105 mmol/L (96-109); Globulin 2.5 g/dL (1.6-3.3); Glucose 102 mg/dL (70-110); Potassium 4.4 mmol/L (3.5-5.5); Sodium 143 mmol/L (135-145); Total Bilirubin 0.2 mg/dL (0.3-1.2); Total Protein 7.2 g/dL (6.2-8.2)
[2023-12-26 03:28] LABS: HCT 48.4 % (37.2-46.3); HGB 15.9 g/dL (12.0-15.0); MCH 29.1 pg (27.0-32.0); MCHC 32.9 g/dL (32.0-37.0); MCV 88.6 FL (80.0-97.0); Mean Platelet Volume 11.2 FL (9.5-12.2); NRBC Per 100 WBC 0 X 10*3/uL (0.00-0.01); Platelet Count 198 X 10*3/uL (140-440); RBC 5.46 X 10*6/uL (4.10-5.20); RDW 13.2 % (11.5-14.5); WBC 5.82 X 10*3/uL (4.50-10.00)
== END | disposition home or self-care (01) ==
LOC: LABWHC1 15:08
PROVIDERS: ATTEND Student in an Organized Health Care Education/Training Program
DX: I13.0 Hypertensive heart and chronic kidney disease with heart failure and stage 1 through stage 4 chronic kidney disease, or unspecified chronic kidney disease (principal); N18.9 Chronic kidney disease, unspecified; I50.9 Heart failure, unspecified
CPT/HCPCS: 36415; 80053; 83880; 85027

== ENCOUNTER → 2024-10-15 | Outpatient (CLI) | payer OTHER ==
--- NOTE | 2024-10-16 12:33 | MM ---
Reason for Exam: Screening (asymptomatic). Last mammogram was performed 1 year(s) and 2 month(s) ago. Patient History: Menarche at age 13. First Full-Term at age 27. Postmenopausal. 03/18/2022, Ultrasound-Guided Core Biopsy on the Left side. Paternal aunt had breast cancer. Risk Values: Jennifer 5 year model risk: 1.7%. NCI Lifetime model risk: 8.7%. Prior Study Comparison: 02/01/2022 Bilateral Screening Mammogram, [facility]. 03/15/2022 Bilateral Diagnostic Mammogram, [facility]. 03/15/2022 Left Diagnostic Ultrasound, [facility]. 08/25/2023 Bilateral Screening Mammogram, [facility]. Tissue Density: There are scattered areas of fibroglandular density. Findings: Analyzed By CAD. Left breast biopsy clip. Right breast: There is no suspicious group of microcalcifications or new suspicious mass. Benign-appearing calcifications right breast. Left breast: There is no suspicious group of microcalcifications or new suspicious mass. Benign-appearing calcifications left breast. Overall Assessment: Benign, BI-RAD 2 Management: Screening Mammogram of both breasts in [address] [facility] will attempt to contact patient to return for supplemental views and ultrasound if indicated. Patient should continue monthly self-breast exams. A clinical breast exam by your physician is recommended on an annual basis. This exam should not preclude additional follow-up of suspicious palpable abnormalities. Note on Jennifer scores and lifetime risk: 1. A Jennifer score greater than 3% is considered moderate risk. If this is the case, consider specialist referral to assess eligibility for a risk reducing agent. 2. If overall lifetime risk for the development of breast cancer is 20% or higher, the patient may qualify for future screening with alternating mammogram and breast MRI. [facility], , 10/16/2024 12:30 PM. Electronically signed and approved by: Maykel Puri DO
== END | disposition home or self-care (01) ==
LOC: RADMAMWWP 09:17
PROVIDERS: ATTEND Obstetrics & Gynecology Gynecology
DX: Z12.31 Encounter for screening mammogram for malignant neoplasm of breast (principal); Z78.0 Asymptomatic menopausal state; Z80.3 Family history of malignant neoplasm of breast; R92.323 Mammographic fibroglandular density, bilateral breasts
CPT/HCPCS: 77063; 77067

== ENCOUNTER → 2025-03-20 | Outpatient (CLI) | payer OTHER ==
--- NOTE | 2025-03-20 09:58 | XR ---
EXAMINATION TYPE: XR thoracic spine 2V DATE OF EXAM: 03/20/2025 9:40 AM COMPARISON: None. CLINICAL INDICATION: Female, 59 years old with history of [id number] thoracic pain, pain TECHNIQUE: 5 view(s) obtained. FINDINGS: There are 12 thoracic type vertebral bodies. Pedicles are intact. Disc heights are preserved. Vertebr al body heights are preserved. Mild scoliosis in the thoracolumbar region. IMPRESSION: 1. No acute osseous abnormality radiographically apparent. [facility], , 03/20/2025 9:55 AM
== END | disposition home or self-care (01) ==
LOC: RADXRMAIN 09:11
PROVIDERS: ATTEND Internal Medicine
DX: M41.85 Other forms of scoliosis, thoracolumbar region (principal)
CPT/HCPCS: 72070